=== PATIENT | male | born 1960 | race Caucasian/White ===

== ENCOUNTER 2024-05-23 08:39 | Day surgery (SDC) | payer BC ==
[~2024-05-23 08:39] MED LIST: Acetaminophen 1,000 MG in Premix Bag 1 BAG IV SCH; Albuterol 0.083% 2.5 MG/3 ML Neb Soln NEB PRN; EPINEPHrine 1 MG/1 ML Amp ONE; HYDROmorphone 1 MG/ML Syringe IVPUSH PRN; Ketamine HCL/NACL, ISO-OSM 50 MG/5 ML Syringe ONE; Lidocaine 2% 5 ML SDV ONE; Metoclopramide 10 MG/2 ML SDV IVPUSH PRN; Midazolam 1 MG/ML 2 ML SDV ONE; Morphine 2 MG/ML SYRINGE IVPUSH PRN; Naloxone 0.4 MG/ML SDV IVPUSH PRN; Ondansetron 4 MG/2 ML SDV IVPUSH PRN; Phenylephrine HCl In 0.9% NaCl 1 MG/10 ML Syringe IVPUSH PRN; Propofol 200 MG/20 ML SDV ONE; Rocuronium Bromide 50 MG/5 ML Syringe ONE; Ropivacaine 0.5% 5 MG/ML 30 ML SDV ONE; ceFAZolin 2 GM in Sodium Chloride 0.9% 50 ML IV ONE; dexmedeTOMIDine HCl 200 MCG/2 ML SDV ONE; fentaNYL 100 MCG/2 ML SDV ONE; fentaNYL 50 MCG/ML SDV IVPUSH PRN
[2024-05-23] MEDS: Pregabalin 75 MG Cap PO SCH (08:55)
[2024-05-23] MEDS: Lactated Ringers 1,000 ML IV SCH (09:22)
[2024-05-23] MEDS ORDERED: Bupivacaine 0.5% 30 ML SDV ONE (09:27)
[2024-05-23] MEDS ORDERED: Phenylephrine HCl In 0.9% NaCl 1 MG/10 ML Syringe ONE (10:49)
[2024-05-23] MEDS ORDERED: ePHEDrine 50 MG/ML SDV ONE (10:56)
[2024-05-23] MEDS ORDERED: Dexamethasone 4 MG/ML 5 ML MDV ONE (11:03)
[2024-05-23] MEDS ORDERED: Ondansetron 4 MG/2 ML SDV ONE (11:03)
[2024-05-23] MEDS ORDERED: Ketorolac 30 MG/ML SDV ONE (11:03)
[2024-05-23] MEDS ORDERED: Sugammadex Sodium 200 MG/2 ML VIAL IV ONE (11:03)
== END 2024-05-23 13:20 | disposition home or self-care (01) ==
LOC: MW.SDS 08:39
PROVIDERS: ATTEND Surgery
DX: K42.9 Umbilical hernia without obstruction or gangrene (principal); I10 Essential (primary) hypertension; E78.00 Pure hypercholesterolemia, unspecified; Z79.82 Long term (current) use of aspirin; Z79.899 Other long term (current) drug therapy
CPT/HCPCS: 49591; A9270; C1781; J0665; J1100; J1885; J2003; J2250; J2371; J2405; J2704; J2795; J3010; J7120; J3490